=== PATIENT | female | born 1960 | race Caucasian/White ===

== ENCOUNTER → 2016-07-25 | Outpatient (CLI) | payer BC ==
[2016-07-25 10:17] LABS: Basophils % (A) 1 %; CH 30.7; Eosinophils # (A) 0.2 k/uL (0-0.7); Eosinophils % (A) 5 %; HCT 40.7 % (34.0-46.0); HDW 2.09; Luc % (Auto) 3; Lymphocytes # (A) 0.8 k/uL (1.0-4.8); Lymphocytes % (A) 27 %; MCH 30.8 pg (25.0-35.0); MCV 96.4 fL (80.0-100.0); Monocytes # (A) 0.2 k/uL (0-1.0); Monocytes % (A) 7 %; Neutrophils # (A) 1.7 k/uL (1.3-7.7); Neutrophils % (A) 57 %; RBC 4.22 m/uL (3.80-5.40); RDW 12.5 % (11.5-15.5); WBC (Perox) 3.34
[2016-07-25 10:29] LABS: ALT 66 U/L (9-52); AST 43 U/L (14-36); Alkaline Phosphatase 77 U/L (38-126); Anion Gap 8 mmol/L; Blood Urea Nitrogen 13 mg/dL (7-17); Calcium 9.4 mg/dL (8.4-10.2); Carbon Dioxide 31 mmol/L (22-30); Chloride 105 mmol/L (98-107); Cholesterol 219 mg/dL (<200); Glucose 99 mg/dL (74-99); HDL Cholesterol 93 mg/dL (40-60); Non-African American GFR(MDRD) >60 (>60 ml/min/1.73 sqM); Potassium 4.8 mmol/L (3.5-5.1); Sodium 144 mmol/L (137-145); Total Bilirubin 0.5 mg/dL (0.2-1.3); Total Protein 7.1 g/dL (6.3-8.2); Triglycerides 81 mg/dL (<150)
--- NOTE | 2016-07-25 10:44 | XR ---
EXAM TYPE: LUMBAR SPINE X RAY SERIES COMPARISON: NONE HISTORY: Back pain TECHNIQUE: 4 views are submitted. FINDINGS: Alignment is anatomic. The pedicles are intact. The transverse processes are intact. There is no s pondylolysis or spondylolisthesis. There is mild degenerative disc disease at levels L1-L5 with mild facet arthropathy at L4-5 and L5-S1 . IMPRESSION: 1. Multilevel mild degenerative disc disease and facet arthropathy. Correlate with MRI as clinically warranted.
== END | disposition home or self-care (01) ==
LOC: LABWHC1 09:31
PROVIDERS: ATTEND Family Medicine
DX: Z13.29 Encounter for screening for other suspected endocrine disorder (principal); M54.40 Lumbago with sciatica, unspecified side
CPT/HCPCS: 36415; 72110; 80053; 80061; 84443; 85025

== ENCOUNTER → 2016-11-05 | Outpatient (CLI) | payer BC ==
--- NOTE | 2016-11-05 07:45 | US ---
EXAMINATION TYPE: US transvaginal DATE OF EXAM: 11/05/2016 7:23 AM COMPARISON: NONE CLINICAL HISTORY: N95.0 Post Monse Bleeding. Postcoital bleeding TECHNIQUE: Transvaginal (TV) Date of LMP: Menopausal EXAM MEASUREMENTS: Uterus: 6.4 x 4.2 x 3.4 cm Endometrial Stripe: 0.4 cm Right Ovary: 2.1 x 1.3 x 1.0 cm Left Ovary: 2.2 x 1.3 x 1.2 cm 1. Uterus: Retroverted Multiple prominent hypoechoic lesions, both on the right. 1- 1.9 x 2.0 x 1.3 cm 2- fundal= 2.9 x 2.8 x 2.5 cm 2. Endometrium: wnl 3. Right Ovary: wnl 4. Left Ovary: wnl Spectral, color and waveform doppler imaging shows good arterial and venous flow within the ovaries ; there is no evidence for ovarian torsion. 5. Bilateral Adnexa: neg 6. Posterior cul-de-sac: no free fluid IMPRESSION: 1. Multiple hypoechoic nodules within the myometrium most suggestive of multiple uterine fibroids. La rgest measures 2.9 cm.
--- NOTE | 2016-11-05 13:41 | MM ---
Reason for exam: follow-up at short interval from prior study. Last mammogram was performed 8 months ago. History: Patient is postmenopausal. Physical Findings: Nurse did not find any significant physical abnormalities on exam. MG 3D Diag Mammo W/Cad RT CC and MLO view(s) were taken of the right breast. Prior study comparison: March 07, 2016, bilateral MG 3d diag mammo w/cad [facility]. May 29, 2015, left breast MG 3d work up w/cad LT. The breast tissue is heterogeneously dense. This may lower the sensitivity of mammography. Finding: There is a 10 mm equal density (isodense), oval mass in the upper outer quadrant of the right breast. These results were verbally communicated with the patient and result sheet given to the patient on 11/05/16. ASSESSMENT: Incomplete: need additional imaging evaluation, BI-RAD 0 RECOMMENDATION: Ultrasound of the right breast.
--- NOTE | 2016-11-05 13:54 | USB ---
Reason for exam: additional evaluation requested from abnormal screening. History: Patient is postmenopausal. US Breast Limited BILAT Right breast ultrasound includes all four quadrants, the retroareolar region and axilla. Finding demonstrates a 0.7 x 1.0 x 0.3cm oval, mixed, hypoechoic lesion at 10 o'clock. Left breast ultrasound includes all four quadrants, the retroareolar region and axilla. Finding demonstrates a 0.4 x 0.4 x 0.2cm oval, hypoechoic lesion at 4 o'clock 3cm from the nipple and a 0.7 x 0.8 x 0.3cm oval, hypoechoic lesion at 4 o'clock. These results were verbally communicated with the patient and result sheet given to the patient on 11/05/16. ASSESSMENT: Suspicious, BI-RAD 4 RECOMMENDATION: Surgical consultation and ultrasound core biopsy of the right breast. Called Dr. Choudhary with mammographic findings and has scheduled an appointment for the patient for 11/27/16 at 10:[address] Wilder. Biopsy scheduled for 11/19/16 at 12:20. PRELIMINARY REPORT CALLED AND FAXED TO DR. WILDER ON 11/05/16 AT 300/TP. Follow-up diagnostic mammogram of both breasts in 4 months. Back on schedule for February 2017. Ultrasound of the left breast in 4 months.
== END | disposition home or self-care (01) ==
LOC: RADUSWWP 06:59
PROVIDERS: ATTEND Obstetrics & Gynecology
DX: D26.1 Other benign neoplasm of corpus uteri (principal); R92.2 Inconclusive mammogram; R92.8 Other abnormal and inconclusive findings on diagnostic imaging of breast; N95.0 Postmenopausal bleeding
CPT/HCPCS: 76830; 76642; G0206; G0279

== ENCOUNTER → 2016-11-13 | Day surgery (SDC) | payer BC ==
[~2016-11-13] MED LIST: BACITRACIN OINT 1 EACH PACKET TOPICAL ONE; LIDOCAINE 1% INJ 10MG/ML (20 ML MDV) ONE
--- NOTE | 2016-11-13 08:51 | USB ---
EXAMINATION TYPE: US biopsy breast VAD RT, MG diagnostic mammo RT wo CAD DATE OF EXAM: 11/13/2016 CLINICAL HISTORY: R92.8 Abnormal Mammo. TECHNIQUE: Ultrasound guided core biopsy of right 10:00 breast. COMPARISON: NONE FINDINGS: The procedure of ultrasound guided core biopsy was explained to the patient. Benefits, alternatives, and risks were discussed. An informed consent was then obtained. The patient was placed in supine positioning for imaging and for the procedure. The overlying skin was prepped and draped in usual sterile fashion. Lidocaine was used as anesthetic into the skin and subcutaneous tissue up to area of concern in the right 10:00 breast. A angela was made with surgical scalpel. Under ultrasound guidance, a 12-gauge vacuum assisted biopsy gun device was used to obtain 3 core samples after which the lesion could no longer be visualized. Following this, a biopsy clip was left in lesion. Postprocedural mammograms demonstrate appropriate clip placement. The patient tolerated the procedure well without any immediate complication. The patient was kept in the radiology department for short stay after the procedure and then discharged home in stable condition. IMPRESSION: Successful, uncomplicated ultrasound guided core biopsy of area of concern in the right 10:00 breast, full pathology results to follow. Pathology Results: Benign BREAST, RIGHT, ULTRASOUND GUIDED CORE BIOPSY: FIBROCYSTIC CHANGE (STROMAL FIBROSIS, CYST FORMATION, AND APOCRINE METAPLASIA). Recommendation Follow up ultrasound of the right breast in 6 months. RACHELD
== END ==
LOC: RADUSWWP 06:58
PROVIDERS: ATTEND Surgery
DX: N60.11 Diffuse cystic mastopathy of right breast (principal); N60.81 Other benign mammary dysplasias of right breast; R92.8 Other abnormal and inconclusive findings on diagnostic imaging of breast
CPT/HCPCS: 88305; 19083; G0206; A4648; J2001

== ENCOUNTER → 2016-11-13 | Outpatient (CLI) | payer BC ==
[2016-11-13 09:58] LABS: Follicle Stimulating Hormone 64.6 mIU/mL
== END | disposition home or self-care (01) ==
LOC: LABWHC1 08:58
PROVIDERS: ATTEND Obstetrics & Gynecology
DX: N91.2 Amenorrhea, unspecified (principal)
CPT/HCPCS: 36415; 82670; 83001

== ENCOUNTER → 2017-03-16 | Outpatient (CLI) | payer BC ==
--- NOTE | 2017-03-16 10:50 | USB ---
Reason for exam: additional evaluation requested from abnormal screening. History: Patient is postmenopausal. Benign US biopsy breast VAD RT of the right breast, November 13, 2016. Took hormonal contraceptives for 6 months beginning at age 20. US Breast BILAT Right breast ultrasound includes all four quadrants, the retroareolar region and axilla. Finding demonstrates no cystic or solid lesion seen. Left breast ultrasound includes all four quadrants, the retroareolar region and axilla. Finding demonstrates no cystic or solid lesion seen. These results were verbally communicated with the patient and result sheet given to the patient on 03/16/17. ASSESSMENT: Negative, BI-RAD 1 RECOMMENDATION: Routine screening mammogram of both breasts in 1 year.
--- NOTE | 2017-03-17 11:07 | MM ---
Reason for exam: additional evaluation requested from prior study. Last mammogram was performed 4 months ago. History: Patient is postmenopausal. Benign US biopsy breast VAD RT of the right breast, November 13, 2016. Took hormonal contraceptives for 6 months beginning at age 20. Physical Findings: Nurse did not find any significant physical abnormalities on exam. MG 3D Diag Mammo W/Cad [facility] Bilateral CC and MLO view(s) were taken. Prior study comparison: November 13, 2016, right breast MG diagnostic mammo RT wo CAD. November 05, 2016, right breast MG 3d diag mammo w/cad RT. The breast tissue is heterogeneously dense. This may lower the sensitivity of mammography. Previous mammotome biopsy in the right breast. Asymmetric breast tissue in the left breast, stable. There is no discrete abnormality. These results were verbally communicated with the patient and result sheet given to the patient on 03/16/17. ASSESSMENT: Benign, BI-RAD 2 RECOMMENDATION: Routine screening mammogram of both breasts in 1 year.
== END | disposition home or self-care (01) ==
LOC: RADMAMWWP 09:35
PROVIDERS: ATTEND Surgery
DX: R92.8 Other abnormal and inconclusive findings on diagnostic imaging of breast (principal)
CPT/HCPCS: 76641; G0204; G0279

== ENCOUNTER → 2017-09-01 | Outpatient (CLI) | payer BC | END | disposition home or self-care (01) | LOC: LABWHC1 10:02 | PROVIDERS: ATTEND Obstetrics & Gynecology | DX: N95.0 Postmenopausal bleeding (principal) | CPT/HCPCS: 36415; 82670; 83001 ==

== ENCOUNTER → 2020-04-24 | Outpatient (CLI) | payer BC ==
--- NOTE | 2020-04-24 15:11 | BD ---
EXAMINATION TYPE: Axial Bone Density DATE OF EXAM: 04/24/2020 COMPARISON: NONE CLINICAL HISTORY: Height: 5 FT 3 1/2 IN Weight: 164 FRAX RISK QUESTIONS: Alcohol (3 or more units per day): NO Family History (Parent hip fracture): NO Glucocorticoids (More than 3mos): NO (Ex: prednisone, prednisolone, methylprednisolone, dexamethasone, and hydrocortisone). History of Fracture in Adulthood: NO Secondary Osteoporosis: 1. Type 1 Diabetes: NO 2. Hyperthyroidism: NO 3. Menopause before 45: NO 4. Malnutrition: NO 5. Chronic liver disease: NO Rheumatoid Arthritis: NO Current Tobacco Use: NO RISK FACTORS HISTORY OF: Family History of Osteoporosis: NO Active: YES Diet low in dairy products/other sources of calcium: NO Postmenopausal woman: AGE 55 Take estrogen and/or progesterone medications: NONE Lost more than 2 inches in height since high school: NO MEDICATIONS: Additional Medications: NONE Additional History: EXAM MEASUREMENTS: Bone mineral densitometry was performed using the [employer] System. Bone mineral density as measured about the Lumbar spine is: ----- L1-L4(G/cm2): 1.166 T Score Values are as follows: ----- L2: 0.0 ----- L3: -0.3 ----- L4: 0.1 ----- L1-L4: -0.1 BASELINE Bone mineral density about the R hip (g/cm2): 0.860 Bone mineral density about the L hip (g/cm2): 0.924 T Score values are as follows: -----R Neck: -1.3 -----L Neck: -0.8 -----R Total: -1.0 -----L Total: -1.0 BASELINE IMPRESSION: No evidence for osteoporosis or osteopenia. NOTE: T-SCORE=SD OF THE YOUNG ADULT MEAN.
--- NOTE | 2020-04-25 08:31 | MM ---
Reason for exam: screening (asymptomatic). Last mammogram was performed 3 years and 1 month ago. History: Patient is postmenopausal. Benign US biopsy breast VAD RT of the right breast, November 13, 2016. Took hormonal contraceptives for 6 months beginning at age 20. Physical Findings: A clinical breast exam by your physician is recommended on an annual basis and results should be correlated with mammographic findings. MG 3D Screening Mammo W/Cad Bilateral CC and MLO view(s) were taken. Prior study comparison: March 16, 2017, bilateral MG 3d diag mammo w/cad [facility]. November 13, 2016, right breast MG diagnostic mammo RT wo CAD. The breast tissue is heterogeneously dense. This may lower the sensitivity of mammography. There is no discrete abnormality. No significant changes when compared with prior studies. ASSESSMENT: Benign, BI-RAD 2 RECOMMENDATION: Routine screening mammogram of both breasts in 1 year.
== END | disposition home or self-care (01) ==
LOC: RADMAMWWP 10:01
PROVIDERS: ATTEND Family Medicine
DX: Z12.31 Encounter for screening mammogram for malignant neoplasm of breast (principal); Z13.820 Encounter for screening for osteoporosis; M85.88 Other specified disorders of bone density and structure, other site
CPT/HCPCS: 77063; 77067; 77080

== ENCOUNTER → 2021-08-20 | Outpatient (CLI) | payer BC ==
[2021-08-20 10:43] LABS: Basophils # (A) 0.02 X 10*3/uL (0.00-0.10); Basophils % (A) 0.6 %; Eosinophils # (A) 0.11 X 10*3/uL (0.04-0.35); Eosinophils % (A) 3.4 %; HCT 41.6 % (37.2-46.3); HGB 13.1 g/dL (12.0-15.0); Immature Grans, Automated 0.3 %; Lymphocytes # (A) 1.23 X 10*3/uL (0.90-5.00); Lymphocytes % (A) 37.8 %; MCH 30.5 pg (27.0-32.0); MCHC 31.5 g/dL (32.0-37.0); Monocytes # (A) 0.45 X 10*3/uL (0.20-1.00); Monocytes % (A) 13.8 %; NRBC Per 100 WBC 0 /100 WBCS (0.0-0.0); Neutrophils # (A) 1.43 X 10*3/uL (1.80-7.70); Neutrophils % (A) 44.1 %; Platelet Count 246 X 10*3/uL (140-440); RBC 4.29 X 10*6/uL (4.10-5.20); RDW 12.4 % (11.5-14.5); WBC 3.25 X 10*3/uL (4.50-10.00)
[2021-08-20 11:01] LABS: ALT 63 U/L (8-44); AST 43 U/L (13-35); African American GFR (CKD) 109.9 (60.0-200.0); Albumin 4.3 g/dL (3.8-4.9); Albumin/Globulin Ratio 1.72 (1.60-3.17); Alkaline Phosphatase 72 U/L (41-126); BUN/Creat Ratio 25.14 Ratio (12.00-20.00); Blood Urea Nitrogen 17.6 mg/dL (9.0-27.0); Calcium 9.9 mg/dL (8.7-10.3); Carbon Dioxide 26.2 mmol/L (20.0-27.5); Chloride 103 mmol/L (96-109); Chol/HDL Ratio 2.67 Ratio; Globulin 2.5 g/dL (1.6-3.3); Glucose 102 mg/dL (70-110); LDL Cholesterol,Calculated 139.9 mg/dL (0.0-131.0); Non-African American GFR(CKD) 94.8 (60.0-200.0); Potassium 4.2 mmol/L (3.5-5.5); Sodium 139 mmol/L (135-145); Total Protein 6.8 g/dL (6.2-8.2); VLDL Calculation 13.76 mg/dL (5.00-40.00)
--- NOTE | 2021-08-21 12:30 | MM ---
Reason for exam: screening (asymptomatic). Last mammogram was performed 1 year and 4 months ago. History: Patient is postmenopausal. Benign US biopsy breast VAD RT of the right breast, November 13, 2016. Took hormonal contraceptives for 6 months beginning at age 20. Physical Findings: A clinical breast exam by your physician is recommended on an annual basis and results should be correlated with mammographic findings. MG 3D Screening Mammo W/Cad Bilateral CC and MLO view(s) were taken. Prior study comparison: April 24, 2020, bilateral MG 3d screening mammo w/cad. March 16, 2017, bilateral MG 3d diag mammo w/cad [facility]. There are scattered fibroglandular densities. Previous mammotome biopsy in the right breast. No significant changes when compared with prior studies. ASSESSMENT: Benign, BI-RAD 2 RECOMMENDATION: Routine screening mammogram of both breasts in 1 year.
== END | disposition home or self-care (01) ==
LOC: RADMAMWWP 07:09
PROVIDERS: ATTEND Family Medicine
DX: Z12.31 Encounter for screening mammogram for malignant neoplasm of breast (principal); Z13.220 Encounter for screening for lipoid disorders; Z13.29 Encounter for screening for other suspected endocrine disorder; R94.5 Abnormal results of liver function studies; Z78.0 Asymptomatic menopausal state
CPT/HCPCS: 77063; 77067; 80053; 80061; 84443; 85025

== ENCOUNTER → 2022-09-24 | Outpatient (CLI) | payer BC ==
--- NOTE | 2022-09-25 08:29 | MM ---
Reason for Exam: Screening (asymptomatic). Last mammogram was performed 1 year(s) and 1 month(s) ago. Patient History: Menarche at age 14. First Full-Term at age 21. Postmenopausal. Patient has history of breast feeding. Hormonal Contraceptives for 6 months from age 20 until age 20. 11/13/2016, Benign Core Biopsy on the right side. Risk Values: Rocio 5 year model risk: 1.2%. NCI Lifetime model risk: 6.3%. Prior Study Comparison: 02/26/2015 Bilateral Screening Mammogram, [facility]. 05/29/2015 Left Diagnostic Mammogram, [facility]. 03/07/2016 Bilateral Diagnostic Mammogram, [facility]. 11/05/2016 Right Diagnostic Mammogram, [facility]. 11/13/2016 Right Diagnostic Mammogram, [facility]. 03/16/2017 Bilateral Diagnostic Mammogram, [facility]. 04/24/2020 Bilateral Screening Mammogram, [facility]. 08/20/2021 Bilateral Screening Mammogram, [facility]. Tissue Density: The breast tissue is heterogeneously dense. This may lower the sensitivity of mammography. Findings: Analyzed By CAD. New asymmetric nodular density upper inner left breast zone C. Additional views are recommended. No suspicious calcifications are present. Overall Assessment: Incomplete: need additional imaging evaluation, BI-RAD 0 Management: Diagnostic Mammogram of the left breast. A clinical breast exam by your physician is recommended on an annual basis and results should be correlated with mammographic findings. Electronically signed and approved by: Lionel Watkins M.D. Radiologis
== END | disposition home or self-care (01) ==
LOC: RADMAMWWP 13:37
PROVIDERS: ATTEND Family Medicine
DX: Z12.31 Encounter for screening mammogram for malignant neoplasm of breast (principal); Z78.0 Asymptomatic menopausal state; Z98.890 Other specified postprocedural states
CPT/HCPCS: 77063; 77067

== ENCOUNTER → 2022-10-07 | Outpatient (CLI) | payer BC ==
--- NOTE | 2022-10-07 14:28 | MM ---
Reason for Exam: Additional evaluation requested from abnormal screening. Last screening mammogram was performed less than 1 month ago. Patient History: Menarche at age 14. First Full-Term at age 21. Postmenopausal. Patient has history of breast feeding. Hormonal Contraceptives for 6 months from age 20 until age 20. 11/13/2016, Benign Core Biopsy on the right side. Risk Values: Rocio 5 year model risk: 1.2%. NCI Lifetime model risk: 6.3%. Prior Study Comparison: 04/24/2020 Bilateral Screening Mammogram, [facility]. 08/20/2021 Bilateral Screening Mammogram, [facility]. 09/24/2022 Bilateral MG 3D screening mammo w/cad, [facility]. Tissue Density: Left: The breast tissue is heterogeneously dense. This may lower the sensitivity of mammography. Findings: Analyzed By CAD. Asymmetric density 12:00 position left breast 7.7 cm from the nipple persists and measures approximately 1.4 cm. Ultrasound is advised. Overall Assessment: Incomplete: need additional imaging evaluation, BI-RAD 0 Management: Diagnostic Breast Ultrasound of the left breast. A clinical breast exam by your physician is recommended on an annual basis and results should be correlated with mammographic findings. This exam should not preclude additional follow-up of suspicious palpable abnormalities. Results were given to the patient verbally at the time of exam. Electronically signed and approved by: Lionel Watkins M.D. Radiologis
--- NOTE | 2022-10-07 14:39 | USB ---
Reason for Exam: Additional evaluation requested from abnormal screening. Patient History: Menarche at age 14. First Full-Term at age 21. Postmenopausal. Patient has history of breast feeding. Hormonal Contraceptives for 6 months from age 20 until age 20. 11/13/2016, Benign Core Biopsy on the right side. Risk Values: Rocio 5 year model risk: 1.2%. NCI Lifetime model risk: 6.3%. Technique: Method: Targeted. Prior Study Comparison: 04/24/2020 Bilateral Screening Mammogram, [facility]. 08/20/2021 Bilateral Screening Mammogram, [facility]. 09/24/2022 Bilateral MG 3D screening mammo w/cad, [facility]. Findings: The upper section of the breast of the left breast, the axilla of the left breast and the retroareolar of the left breast were scanned. No solid or cystic masses are identified.. Overall Assessment: Probably benign, BI-RAD 3 Management: Diagnostic Mammogram of the left breast in 6 months. A clinical breast exam by your physician is recommended on an annual basis and results should be correlated with mammographic findings. This exam should not preclude additional follow-up of suspicious palpable abnormalities. Results were given to the patient verbally at the time of exam. Electronically signed and approved by: Lionel Watkins M.D. Radiologis
== END | disposition home or self-care (01) ==
LOC: RADMAMWWP 13:31
PROVIDERS: ATTEND Family Medicine
DX: R92.8 Other abnormal and inconclusive findings on diagnostic imaging of breast (principal); Z78.0 Asymptomatic menopausal state
CPT/HCPCS: 77061; 77065

== ENCOUNTER → 2022-11-17 | Outpatient (CLI) | payer BC ==
--- NOTE | 2022-11-17 07:50 | US ---
EXAMINATION TYPE: US liver DATE OF EXAM: 11/17/2022 COMPARISON: NONE CLINICAL INDICATION: Female, 62 years old with history of R74.01 ELEVATED LIVER LEVELS; Pt states wilian vated LFT's x 1 year TECHNIQUE: Multiple sonographic images of the right upper quadrant are obtained. FINDINGS: EXAM MEASUREMENTS: Liver Length: 13.6 cm Gallbladder Wall: 0.2 cm CBD: 0.4 cm Right Kidney: 11.3 x 3.7 x 5.3 cm FALAFEL CART COOK NOTES: Pancreas: wnl Liver: wnl Gallbladder: wnl Evidence for sonographic Snyder's sign: No CBD: wnl Right Kidney: wnl The visualized portions of pancreas are unremarkable. The liver is unremarkable without evidence of f ocal lesion. Gallbladder is unremarkable without evidence of stones, pericholecystic fluid, or wall t hickening. Per fluid pump operator, negative sonographic Snyder sign. Common bile duct is within normal limit s. Right kidney is unremarkable without evidence of hydronephrosis, shadowing calculi, or solid mass. IMPRESSION: Unremarkable right upper abdominal ultrasound.
== END | disposition home or self-care (01) ==
LOC: RADUSWWP 07:27
PROVIDERS: ATTEND Family Medicine
DX: R74.01 Elevation of levels of liver transaminase levels (principal)
CPT/HCPCS: 76705

== ENCOUNTER → 2023-10-19 | Outpatient (CLI) | payer BC ==
--- NOTE | 2023-10-19 13:19 | MM ---
Reason for Exam: Follow-up at short interval from prior study. Last mammogram was performed 1 year(s) and 1 month(s) ago. Patient History: Menarche at age 14. First Full-Term at age 21. Postmenopausal. Patient has history of breast feeding. Hormonal Contraceptives for 6 months from age 20 until age 20. 11/13/2016, Benign Core Biopsy on the right side. Risk Values: Rocio 5 year model risk: 1.3%. NCI Lifetime model risk: 6.1%. Prior Study Comparison: 03/07/2016 Bilateral Diagnostic Mammogram, [facility]. 03/16/2017 Bilateral Diagnostic Mammogram, [facility]. 04/24/2020 Bilateral Screening Mammogram, [facility]. 09/24/2022 Bilateral MG 3D screening mammo w/cad, [facility]. 10/07/2022 Left MG 3D work up w/cad , [facility]. Tissue Density: There are scattered areas of fibroglandular density. Findings: Analyzed By CAD. Chronic nodularity subareolar left breast. Area of asymmetric density central inner left breast on the CC view middle depth remains unchanged. No significant change from prior exams. Microclip right breast from prior biopsy. Overall Assessment: Benign, BI-RAD 2 Management: Screening Mammogram of both breasts in 1 year. Results were given to the patient verbally at the time of exam. Patient should continue monthly self-breast exams. A clinical breast exam by your physician is recommended on an annual basis. This exam should not preclude additional follow-up of suspicious palpable abnormalities. Note on Rocio scores and lifetime risk: 1. A Rocio score greater than 3% is considered moderate risk. If this is the case, consider specialist referral to assess eligibility for a risk reducing agent. 2. If overall lifetime risk for the development of breast cancer is 20% or higher, the patient may qualify for future screening with alternating mammogram and breast MRI. Electronically signed and approved by: Rosa Reddy M.D. Radiologist
--- NOTE | 2023-10-19 14:18 | BD ---
EXAMINATION TYPE: Axial Bone Density DATE OF EXAM: 10/19/2023 CLINICAL HISTORY: 63 years old Female. ICD-10 CODE: Z78.0 ASYMP [place] STATE Height: 62 Weight: 162.1 FRAX RISK QUESTIONS: Alcohol (3 or more units per day): no Family History (Parent hip fracture): no Glucocorticoids (More than 3mos): no (Ex: prednisone, prednisolone, methylprednisolone, dexamethasone, and hydrocortisone). History of Fracture in Adulthood: no Secondary Osteoporosis: 1. Type 1 Diabetes: no 2. Hyperthyroidism: no 3. Menopause before 45: no 4. Malnutrition: no 5. Chronic liver disease: no Rheumatoid Arthritis: no Current Tobacco Use: no RISK FACTORS HISTORY OF: Surgery to Spine/Hip(right/left)/Wrist (right/left): no EXAM MEASUREMENTS: Bone mineral densitometry was performed using the [employer]. Bone mineral density as measured about the Lumbar spine is: ----- L1-L4(G/cm2): 1.133 T Score Values are as follows: ----- L1: -1.1 ----- L2: -1.0 ----- L3: -0.2 ----- L4: 0.5 ----- L1-L4: -0.4 Z Score Values are as follows: ----- L1: -0.1 ----- L2: 0.1 ----- L3: 0.8 ----- L4: 1.5 ----- L1-L4: 0.6 Bone mineral density has: decreased -2.8 % since study of: 04.24.2020 Bone mineral density about the R hip (g/cm2): 0.881 Bone mineral density about the L hip (g/cm2): 0.863 T Score values are as follows: -----R Neck: -1.1 -----L Neck: -0.8 -----R Total: -1.0 -----L Total: -1.1 Z Score values are as follows: -----R Neck: 0.1 -----L Neck: .3 -----R Total: -0.2 -----L Total: -0.3 Bone mineral density has: decreased -0.8 % since study of: 04.24.2020 FRAX%s: The graph provided illustrates a 7.3% chance for a major osteoporotic fx and a 0.5% chance fo r the hips probability for fx in 10 years time. IMPRESSION: Osteopenia (T Score between -2.5 and -1). There is slightly increased risk of fracture and the patient may be considered for treatment. Re-Screen 2-5 years. NOTE: T-SCORE=SD OF THE YOUNG ADULT MEAN.
== END | disposition home or self-care (01) ==
LOC: RADBDWWP 12:50
PROVIDERS: ATTEND Family Medicine
DX: R92.323 Mammographic fibroglandular density, bilateral breasts (principal); M85.88 Other specified disorders of bone density and structure, other site; Z78.0 Asymptomatic menopausal state
CPT/HCPCS: 77062; 77066; 77080